=== PATIENT | female | born 1960 | race Caucasian/White ===

== ENCOUNTER 2017-06-04 15:40 | Inpatient (IN) | payer SELFPAY ==
[2017-06-04] MEDS ORDERED: MORPHINE SULFATE 2 MG/1 ML IVP ONE (16:01)
[2017-06-04] MEDS ORDERED: Sodium Chloride 0.9% 1,000 ML PRIMARY IV ONE (16:01)
[2017-06-04] MEDS ORDERED: NORMAL SALINE 10 ML SYRINGE FLUSH IVP PRN ×4 (16:01→21:58)
[2017-06-04] MEDS ORDERED: ONDANSETRON 4 MG/2 ML VIAL IVP ONE ×2 (16:01→18:19)
[2017-06-04] MEDS ORDERED: Famotidine Inj 20 MG in Normal Saline Flush 10 ML IVP ONE (16:01)
[2017-06-04 16:10] LABS: BASOPHILS # (AUTO) 0.05 10*3/UL; BASOPHILS % (AUTO) 0.4 % (0-1); EOSINOPHILS # (AUTO) 0.53 10*3/UL; EOSINOPHILS % (AUTO) 3.9 % (0-8); HEMATOCRIT 42.1 % (37.0-47.0); HEMOGLOBIN 14.7 g/dL (12.0-16.0); LYMPHOCYTES # (AUTO) 1.58 10*3/uL; MEAN CORPUSCULAR HEMOGLOBIN 32.6 PG (27-31); MEAN CORPUSCULAR HGB CONC 34.9 g/dL (33-37); MEAN CORPUSCULAR VOLUME 93.3 FL (81-99); MEAN PLATELET VOLUME 8.9 FL (7.4-12.2); MONOCYTES # (AUTO) 0.45 10*3/UL (0.3-0.8); MONOCYTES % (AUTO) 3.3 % (5-15); NEUTROPHILS # (AUTO) 10.93 10*3/UL; NEUTROPHILS % (AUTO) 80.6 % (50-80); PLATELET MORPHOLOGY COMMENT NORMAL MORPHOLOGY (NORM); RBC MORPHOLOGY COMMENT NORMAL MORPHOLOGY (NORM); RED BLOOD COUNT 4.51 10^6/uL (4.20-5.40); WBC MORPHOLOGY COMMENT NORMAL MORPHOLOGY (NORM)
[2017-06-04 16:14] LABS: BLOOD UREA NITROGEN 10 mg/dL (7-22); BUN/CREATININE RATIO 14.28 (6-20); CALCIUM 9.3 mg/dL (8.7-10.7); EST GLOMERULAR FILTRATION > 60 (>60 ml/min/1.73m(2)); LIPASE 25 IU/L (23-300); SERUM ALBUMIN 3.8 g/dL (3.5-4.8)
[2017-06-04 18:00] LABS: BILIRUBIN,URINE NEGATIVE (NEG); CLARITY,URINE CLEAR (CLEAR); COLOR,URINE YELLOW; GLUCOSE, URINE (UA) NEGATIVE (NEG); NITRATE,URINE POSITIVE (NEG); OCCULT BLOOD,URINE SMALL (NEG); PH,URINE 5.5 (5.0-8.5); PROTEIN,URINE NEGATIVE (NEG); UROBILINOGEN,URINE 0.2 EU/dL (0.2)
[2017-06-04 18:10] LABS: BACTERIA,URINE MANY; URINE SAMPLE TYPE CATH SPECIMEN
--- NOTE | 2017-06-04 18:17 | DI ---
CLINICAL HISTORY: Abdominal pain. COMPARISON: 07/09/2012. FINDINGS/TECHNIQUE: There is free fluid in the deep pelvis and right paracolic gutter. There are areas of free air in the subdiaphragmatic region. The appendix is normal. It is difficult to determine where the free air arises. The stomach and duodenal sweep are grossly normal. The liver, spleen, adrenals, gallbladder and kidneys are normal. Lung bases are clear. Skeletal structures are unremarkable. IMPRESSION; 1. Free subdiaphragmatic air and free fluid in the deep pelvis. This most likely arises from a perfo rated viscus. Correlate clinically. NOTIFICATION: The above findings were phoned to Fam Early in the ER Department on 06/04/2017 at 8:23 pm EST.
[2017-06-04] MEDS ORDERED: ERTAPENEM 1 GM VIAL ONE (18:30)
[2017-06-04] MEDS ORDERED: Sodium Chloride 0.9% 250 ML IV ONE (18:30)
[2017-06-04] MEDS: MORPHINE SULFATE 4 MG/1 ML IVP ONE ×2 (18:30→18:35)
[2017-06-04] MEDS ORDERED: Ertapenem Inj 1 GM in Sodium Chloride 0.9% 100 ML IV ONE (18:30)
--- NOTE | 2017-06-04 19:41 | PDOC ---
History and Physical - History of Present Illness Date and Time of Service: 06/04/2017 at 1935 Chief Complaint: Abdominal pain that started 10 AM History of Present Illness: This is 57-year-old female who appears level inserted age. The comes in with acute Onset of Abdominal Pain. She Had the Pain in the Midepigastric Region at 10 AM. The Pain Was so Severe Double Her over. She Is Feeling a Bit Better but It Is See Medication the ER. The Pain Is Now Localized More to the Right Side of the Abdomen. She Comes in with a 13,[address] Scan of the Abdomen Was Read As Having Free Air under the Diaphragm with Fluid in the Right Paracolic Gutter and in the Pelvis. The Appendix Appeared to Be Normal. Patient States That She's Been Having Abdominal Pain off and on for Years. Has Been Taking Zantac and Gas-X with No Relief. Patient Does Have Hepatitis C. Patient Currently Smokes. Past Medical History Medical History: Anxiety Surgical History: Tubal ligation, parotid gland tumor removal Tobacco Use: Current Every Day Smoker Substance Use Type: None Medication / Allergies Home Medications: Home Medications Medication Instructions Recorded Confirmed Type Esomeprazole Magnesium [Nexium 1 cap PO PRN cap 11/12/16 06/04/17 History 24hr] Inulin [Fiber Gummies] 2 gm PO PRN tab 11/12/16 06/04/17 History Lidocaine HCl 1 applic TOPICAL Q4H PRN #1 tube 11/12/16 06/04/17 Clinic Multivit with Calcium,Iron,Min 1 tab PO DAILY tab 11/12/16 06/04/17 History [Women's Daily Formula] Citalopram Hydrobromide 1 tab PO DAILY #30 tab 12/10/16 06/04/17 Clinic [Citalopram Hbr] Lorazepam 0.5 tab PO TID PRN #90 tab 12/10/16 06/04/17 Clinic Valacyclovir HCl [Valacyclovir] 1,000 mg PO QD #30 tab 12/10/16 06/04/17 Clinic Bisacodyl [Dulcolax] 5 mg PO PRN 06/04/17 06/04/17 History Ranitidine HCl [Zantac 75] 75 mg PO DAILY 06/04/17 06/04/17 History Simethicone [Gas-X Ultra Strength] 180 mg PO PRN 06/04/17 06/04/17 History Allergies/Adverse Reactions: Allergies Allergy/AdvReac Type Severity Reaction Status Date / Time codeine [Codeine] Allergy Severe EXCESSIVE Verified 06/04/17 15:56 VOMITING Review of Systems - Constitutional Constitutional: REPORTS: General Health Good - Integumentary Integumentary: REPORTS: Rash - Eye Exam Eye Exam: REPORTS: Negative System Review - Respiratory Respiratory: REPORTS: Negative System Review - Cardiovascular Cardiovascular: REPORTS: Negative System Review - Gastrointestinal Gastrointestinal / Abdominal: REPORTS: Negative System Review, Abdominal Pain - Genitourinary Genitourinary: REPORTS: Negative System Review - Musculoskeletal Musculoskeletal: REPORTS: Negative System Review - Neurological Neurologic: REPORTS: Negative System Review - Psychiatric Psychiatric: DENIES: Anhedonia, Anxiety, Depressed, Hopelessness, Hospitalization, Negative System Review, Other, Panic, Sadness, See HPI, Suicidality, Tearfullness Exam - Vitals Vital Signs: Vital Signs Temperature 97 F Temperature Source Temporal Artery Scan Pulse Rate [Pulse Oximeter] 78 Respiratory Rate 16 Blood Pressure [Left Arm] 135/102 Pulse Ox 95 Oxygen Delivery Method Room Air Height 5 ft 5 in Weight 56.699 kg - General General Appearance: POSITIVE: No Acute Distress, Cooperative - Head Head Exam: POSITIVE: Normal Inspection, Normocephalic - Eye Eye Exam: POSITIVE: Normal Appearance, PERRL, EOMI, No Scleral Icterus - ENT ENT Exam: POSITIVE: Normal Exam, Normal External Ear Exam, Normal Oropharynx, TM 's Normal Bilaterally, Mucous Membranes Moist - Neck Neck Exam: POSITIVE: Normal Inspection, Full ROM, No Tenderness, No Lymphadenopathy, No Thyromegaly, JVP is not Raised - Respiratory Respiratory Exam: POSITIVE: Clear to Auscultation - Bilaterally, Breathing Non Labored, Normal To Percussion, Normal to Percussion and Palpation - Cardiovascular Cardiovascular Exam: POSITIVE: RRR, No Murmur, No Clicks, No Gallops, No Rubs - GI/Abdominal GI/Abdominal Exam: POSITIVE: Normal Bowel Sounds, Non Distended, Soft, No Masses , No Hepatomegaly, No Splenomegaly, No Organomegaly Additional GI/Abdominal Exam Details: Patient has epigastric abdominal pain and right lower quadrant on pain the most tender areas the midepigastric region. Is no rebound or rigidity - Rectal Rectal Exam: POSITIVE: Deferred - External Exam: POSITIVE: Deferred Exam: POSITIVE: Deferred - Extremities Extremities Exam: POSITIVE: Normal Inspection, Full ROM, Normal Capillary Refill , No Clubbing Present, No Edema Present, No Cyanosis Present, Negative Samia's sign, Dosalis Pedis Pulses - Stong & Regular - Back Back Exam: POSITIVE: Normal Inspection, Full ROM, No CVA Tenderness - Neurological Neurological Exam: POSITIVE: Alert, Oriented x 3, Reflexes Normal, Normal Gait, CN II-XII Intact, No Facial Droop, Speech Intact / Clear, Moves All Extremities Equally, No Fasciculations, No Clonus - Psychiatric Psychiatric Exam: POSITIVE: Normal Affect, Normal Mood - Integumentary Integumentary Exam: POSITIVE: Normal Color, Warm, Dry, Intact Results - Labs CBC and BMP: 06/04/17 16:01 06/04/17 16:01 Labs - Last 24 Hours: Laboratory Results 06/04/17 Range/Units 16:01 WBC 13.57 H (4.8-10.8) 10^3/uL RBC 4.51 (4.20-5.40) 10^6/uL Hgb 14.7 (12.0-16.0) g/dL Hct 42.1 (37.0-47.0) % MCV 93.3 (81-99) FL MCH 32.6 H (27-31) PG MCHC 34.9 (33-37) g/dL RDW Std Deviation 46.1 (39-50) fL RDW Coeff of Anton 13.8 (11.5-14.5) % Plt Count 382 H (140-350) 10*3/uL MPV 8.9 (7.4-12.2) FL Immature Gran % (Auto) 0.2 (0-5) % Neut % (Auto) 80.6 H (50-80) % Lymph % (Auto) 11.6 (10-50) % [place] % (Auto) 3.3 L (5-15) % Eos % (Auto) 3.9 (0-8) % Baso % (Auto) 0.4 (0-1) % Immature Gran # (Auto) 0.03 10*3/UL Neut # (Auto) 10.93 10*3/UL Lymph # (Auto) 1.58 10*3/uL [place] # (Auto) 0.45 (0.3-0.8) 10*3/UL Eos # (Auto) 0.53 10*3/UL Baso # (Auto) 0.05 10*3/UL WBC Morphology Comment Normal morphology (NORM) Plt Morphology Comment Normal morphology (NORM) RBC Morph Comment Normal morphology (NORM) Sodium 139 (135-145) meq/L Potassium 3.7 L (3.8-5.2) meq/L Chloride 107 (98-112) meq/L Carbon Dioxide 22 L (23-33) meq/L Anion Gap 10 (5-20) BUN 10 (7-22) mg/dL Creatinine 0.7 (0.50-1.20) mg/dL Estimated GFR > 60 (>60 ml/min/1.73m(2)) BUN/Creatinine Ratio 14.28 (6-20) Glucose 120 H (78-110) mg/dL Calculated Osmolality 287.0 (267-292) mOsm/kg Calcium 9.3 (8.7-10.7) mg/dL Total Bilirubin 1.0 (0.3-1.2) mg/dL AST 43 H (8-39) IU/L ALT 21 (9-52) IU/L Alkaline Phosphatase 78 (38-126) IU/L Total Protein 6.7 (6.1-8.0) g/dL Albumin 3.8 (3.5-4.8) g/dL Globulin 2.9 (2.50-4.10) g/dL Albumin/Globulin Ratio 1.30 (1.3-2.0) mg/g Amylase 56 (30-110) U/L Lipase 25 (23-300) IU/L Ur Collection Type Cath specimen Urine Color Yellow Urine Clarity Clear (CLEAR) Urine pH 5.5 (5.0-8.5) Ur Specific [place] 1.015 (1.005-1.030) Urine Protein Negative (NEG) mg/dl Urine Glucose (UA) Negative (NEG) mg/dL Urine Ketones 15 (NEG) Urine Occult Blood Small H (NEG) Urine Nitrate Positive H (NEG) Urine Bilirubin Negative (NEG) Urine Urobilinogen 0.2 (0.2) EU/dL Ur Leukocyte Esterase Negative (NEG) Urine RBC None (NONE) /hpf Urine WBC 10-15 (NONE) Ur Squamous Epith Cells None (NONE) Ur Renal Epithelial Cell None (NONE) Urine Crystals None Urine Bacteria Many (NONE) Urine Casts None (NONE) Urine Mucus None (NONE) Urine Trichomonas None (NONE) Urine Yeast None (NONE) Ur Culture Indicated? Culture set Assessment and Plan - Patient Problems (1) Perforated abdominal viscus Current Visit: Yes Status: Acute - Assessment / Plan Additional Assessment/Plan Details: I told patient most likely she has a perforated viscus. I did not sure exactly what is perforated but most likely a ulcer. If it is an ulcer we will oversew and do a Vernon patch. Because of the timing from start of the down pain and amount contamination is seen on CT scan, I do not think is kennedy to do a vagotomy. Therefore will do the more minimal surgery. She will be placed on PPIs. She has received gram Invanz in the emergency department. Alternatively I discussed his benign antibiotics and PPIs she has declined that conservative treatment. Risks benefits surgery were explained she understands a signed informed consent .
[2017-06-04] MEDS ORDERED: Lactated Ringers 1,000 ML PRIMARY IV SCH ×2 (19:45→20:04)
[2017-06-04] MEDS ORDERED: MIDAZOLAM 5 MG/1 ML ONE (20:02)
[2017-06-04] MEDS ORDERED: fentaNYL Inj 250 MCG/5 ML VIAL ONE (20:02)
[2017-06-04] MEDS ORDERED: SUCCINYLCHOLINE CHLORIDE 20 MG/1 ML - 10 ML ONE (20:04)
[2017-06-04] MEDS ORDERED: ROCURONIUM 10 MG/1 ML - 5 ML VIAL IVP ONE (20:04)
[2017-06-04] MEDS ORDERED: Hetastarch 6% + NS 500 ML IV ONE (20:07)
[2017-06-04] MEDS ORDERED: IPRATROPIUM/ALBUTEROL SULFATE 3 ML NEB NEB ONE (20:08)
[2017-06-04] MEDS ORDERED: KETAMINE 100 MG/1 ML - 5 ML ONE (20:32)
[2017-06-04] MEDS ORDERED: ePHEDrine Inj 50 MG/ML AMP ONE (20:42)
[2017-06-04] MEDS ORDERED: GLYCOPYRROLATE 0.2 MG/1 ML VIAL ONE (21:07)
[2017-06-04] MEDS ORDERED: NEOSTIGMINE 1 MG/1 ML - 10 ML ONE (21:07)
[2017-06-04] MEDS ORDERED: DEXAMETHASONE PF 10 MG/1 ML VIAL ONE (21:08)
[2017-06-04] MEDS ORDERED: ONDANSETRON 4 MG/2 ML VIAL IVP PRN (21:22)
[2017-06-04] MEDS ORDERED: Acetaminophen 1000mg Inj 1,000 MG in Premix 1 BAG IV PRN ×2 (21:22→22:08)
[2017-06-04] MEDS ORDERED: MORPHINE SULFATE 2 MG/1 ML IVP PRN (21:22)
[2017-06-04] MEDS ORDERED: D5-1/2NS + 20mEq KCL 1,000 ML PRIMARY IV SCH (21:30)
[2017-06-04] MEDS ORDERED: Sodium Chloride 0.9% vial 10 ML ONE (21:32)
[2017-06-04] MEDS ORDERED: PANTOPRAZOLE IV 40 MG VIAL ONE (21:32)
--- NOTE | 2017-06-04 21:38 | GEN.OPNOTE ---
Operative Note Surgery Date: 06/04/17 Preoperative Diagnosis: Perforated viscus Postoperative Diagnosis: Perforated duodenal ulcer Procedure: Oversewing and Vernon patch of a duodenal ulcer Surgeon: Isra Forrester MD Anesthesia Provider: Leigha Bolden CRNA Anesthesia Type: General Estimated Blood Loss (mL): 2 Fluids: 1 L LR. 500 Hespan Pathology: None sent Indications: Patient comes with acute onset abdominal pain at 10 AM on 06/04/2017. CT scan shows free air Findings: Perforated duodenal ulcer Complications: None Operative Summary: Patient brought operating room placed supine position. Given general trach anesthesia. Prepped draped sterile fashion. Timeout performed per protocol. I made an upper midline incision. Hemostased and left cautery. Dissection of subcutaneous tissue electrocautery. I divided the fascia in the midline with electrocautery. Bluntly opened the peritoneum then opened with electrocautery. Harlan retractor was placed. Patient had a greenish fluid consistent with a perforated ulcer. Patient right of the pyloric channel had a perforated ulcer. I used 3-0 Vicryl to simply close the perforation. Then put a piece of omentum overlying the perforation and tied this in place perform a Vernon patch. I then used copious amounts of irrigation to irrigate out the abdominal cavity. Harlan retractor was removed. I closed with 0 Prolene contents running suture. Skin reapproximated using skin argelia. Patient tolerated surgery well the were no problems. All counts were correct. Patient Problems - Patient Problem List (1) Perforated abdominal viscus Current Visit: Yes Status: Acute
[2017-06-04] MEDS ORDERED: Acetaminophen 1000mg Inj 100 ML IV ONE (21:40)
[2017-06-04] MEDS: HYDROmorphone 2 MG/1 ML ONE ×2 (21:45→21:55)
[2017-06-04] MEDS ORDERED: fentaNYL Inj 100 MCG/2 ML VIAL IVP PRN (21:58)
[2017-06-04] MEDS ORDERED: HYDROmorphone 2 MG/1 ML IVP PRN (21:58)
[2017-06-04] MEDS: MORPHINE SULFATE 2 MG/1 ML IVP PRN (22:47)
[2017-06-04] MEDS ORDERED: Lactated Ringers 1,000 ML PRIMARY IV ONE (23:44)
[2017-06-05] MEDS: MORPHINE SULFATE 2 MG/1 ML IVP PRN ×8 (01:51→20:14)
[2017-06-05] MEDS: D5-1/2NS + 20mEq KCL 1,000 ML PRIMARY IV SCH ×3 (01:52→20:12)
--- NOTE | 2017-06-05 04:04 | PDOC ---
Abdomen/Flank HPI - General Chief Complaint: Abdomen Pain Stated Complaint: ABDOMEN PAIN Date Seen by Provider: 06/04/17 Time Seen by Provider: 15:50 Source: POSITIVE: Patient Exam Limitations: POSITIVE: No limitations Nurse's Notes Reviewed & Considered: Yes - History of Present Illness Initial Comments: The patient is a 57-year-old female. She presents to the emergency room complaining of an approximately six-hour history of abdominal pain. Her pain is poorly localized but is somewhat worse in the lower abdomen than the upper abdomen. She's had associated nausea but no vomiting. She's not had any history of abdominal surgery except for a bilateral tubal ligation. No vomiting , hematemesis, diarrhea, melena, hematochezia, dysuria or hematuria. No known fevers. 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) Severity: Moderate Quality: REPORTS: "Pain" Abdominal Pain Onset Location: REPORTS: Periumbilical, Generalized abdomen Abdominal Pain Radiation: REPORTS: No radiation Context: REPORTS: None Modifying Factors: improves with: Nothing Associated Symptoms: REPORTS: Nausea Similar Symptoms Previously: No Recent Care Received: REPORTS: Denies Any Prior Injuries Related to Current Complaint?: No - Patient Home Medications Home Medications: Home Medications Esomeprazole Magnesium [Nexium 24hr] 1 cap PO PRN cap 11/12/16 Inulin [Fiber Gummies] 2 gm PO PRN tab 11/12/16 Lidocaine HCl 1 applic TOPICAL Q4H PRN #1 tube 11/12/16 Multivit with Calcium,Iron,Min [Women's Daily Formula] 1 tab PO DAILY tab 11/12 Citalopram Hydrobromide [Citalopram Hbr] 1 tab PO DAILY #30 tab 12/10/16 Lorazepam 0.5 tab PO TID PRN #90 tab 12/10/16 Valacyclovir HCl [Valacyclovir] 1,000 mg PO QD #30 tab 12/10/16 Bisacodyl [Dulcolax] 5 mg PO PRN 06/04/17 Ranitidine HCl [Zantac 75] 75 mg PO DAILY 06/04/17 Simethicone [Gas-X Ultra Strength] 180 mg PO PRN 06/04/17 - Patient Allergies Allergies/Adverse Reactions: Allergies Allergy/AdvReac Type Severity Reaction Status Date / Time codeine [Codeine] Allergy Severe EXCESSIVE Verified 06/04/17 15:56 VOMITING Past Medical History - heen HEENT History: Denies History Cardiovascular History: Denies History Respiratory History: Denies History Gastrointestinal History: Pancreatitis Genitourinary History: Denies History Endocrine History: Denies History Musculoskeletal History: Denies History Prosthesis or Implant: No Neurological History: Denies History Blood Disorders: Other (please comment) Additional Blood Disorders History: HEPATITIS C Psychiatric History: Denies History Female Reproductive History: Hysterectomy Obstetrical History: Denies History Cancer History: Other (please comment) Cancer Treatment / Date(s) of Treatment: AGE 28 YR In Past Year Been Physically Harmed or Verbally Threatened: No History of MDRO: No Tobacco Use: Current Every Day Smoker Alcohol Use: Heavy Substance Use Type: None Previous Surgical History: Yes Anesthesia Reactions: No Significant Family History: Cancer Past Medical History Reviewed: Reviewed - No Changes ROS - Limitations ROS Limitations: No Limitations Constitution: REPORTS: Denies Symptoms Cardiovascular: REPORTS: Denies Cardiac Symptoms Respiratory: REPORTS: Denies Resp Symptoms Neurological: REPORTS: Denies Neuro Symptoms Gastrointestinal: REPORTS: Abdominal Pain, Nausea Endocrine: REPORTS: Denies Symptoms Musculoskeletal: REPORTS: Denies MS Symptoms Genitourinary: REPORTS: Denies Symptoms Eyes: REPORTS: Denies Symptoms ENT: REPORTS: Denies Symptoms Skin: REPORTS: Denies Skin Symptoms Lympathic: REPORTS: Denies Lympathic Symptoms Immunologic: POSITIVE: Denies Symptoms Psychiatric: POSITIVE: Denies Psych Symptoms Abdominal/Flank Pain PE - General Appearance General Appearance: POSITIVE: Alert, Cooperative, No Acute Distress, No Evidence of Trauma - HEENT HEENT: POSITIVE: Head Inspection Nml, Eyes Inspection Nml, Ears Inspection Nml, Nose Inspection Nml, Oral/Dental Inspect. Nml, Pharynx Inspect. Nml, PERRL, EOMI - Neck Neck: POSITIVE: Normal Inspection, No Apparent Injury - Respiratory Respiratory: POSITIVE: No Respiratory Distress, Breath Sounds Normal, Chest Non- Tender - Cardiovascular Cardiovascular: POSITIVE: Regular Rate and Rhythm, Heart Sounds Normal, Equal Pulses, Strong Pulses Peripheral Pulses: Radial (R): 2+, Radial (L): 2+ - Chest Chest: POSITIVE: Non Tender - Abdomen Abdomen: No Splenomegaly: (All Quadrants), No Hepatomegaly: (All Quadrants), No Guarding: (All Quadrants), No Rebound: (All Quadrants), No Palpable Pulse: (All Quadrants), No Palpabale Mass: (All Quadrants), No Distention: (All Quadrants), No Rigidity: (All Quadrants), Tenderness Noted: (RUQ), (LUQ), (RLQ), (LLQ), Hypoactive Bowel Sounds: (RUQ), (LUQ), (RLQ), (LLQ) Additional Abdominal Details: Abdominal examination shows bowel sounds to be depressed. Patient complains of tenderness wherever the abdomen is palpated, somewhat more so in the right and left lower abdominal quadrants. No masses, organomegaly or rebound. Some guarding. 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 Lab Results Reviewed: Yes Lab Results:: Laboratory Results 06/04/17 Range/Units 16:01 WBC 13.57 H (4.8-10.8) 10^3/uL RBC 4.51 (4.20-5.40) 10^6/uL Hgb 14.7 (12.0-16.0) g/dL Hct 42.1 (37.0-47.0) % MCV 93.3 (81-99) FL MCH 32.6 H (27-31) PG MCHC 34.9 (33-37) g/dL RDW Std Deviation 46.1 (39-50) fL RDW Coeff of Anton 13.8 (11.5-14.5) % Plt Count 382 H (140-350) 10*3/uL MPV 8.9 (7.4-12.2) FL Immature Gran % (Auto) 0.2 (0-5) % Neut % (Auto) 80.6 H (50-80) % Lymph % (Auto) 11.6 (10-50) % [place] % (Auto) 3.3 L (5-15) % Eos % (Auto) 3.9 (0-8) % Baso % (Auto) 0.4 (0-1) % Immature Gran # (Auto) 0.03 10*3/UL Neut # (Auto) 10.93 10*3/UL Lymph # (Auto) 1.58 10*3/uL [place] # (Auto) 0.45 (0.3-0.8) 10*3/UL Eos # (Auto) 0.53 10*3/UL Baso # (Auto) 0.05 10*3/UL WBC Morphology Comment Normal morphology (NORM) Plt Morphology Comment Normal morphology (NORM) RBC Morph Comment Normal morphology (NORM) Sodium 139 (135-145) meq/L Potassium 3.7 L (3.8-5.2) meq/L Chloride 107 (98-112) meq/L Carbon Dioxide 22 L (23-33) meq/L Anion Gap 10 (5-20) BUN 10 (7-22) mg/dL Creatinine 0.7 (0.50-1.20) mg/dL Estimated GFR > 60 (>60 ml/min/1.73m(2)) BUN/Creatinine Ratio 14.28 (6-20) Glucose 120 H (78-110) mg/dL Calculated Osmolality 287.0 (267-292) mOsm/kg Calcium 9.3 (8.7-10.7) mg/dL Total Bilirubin 1.0 (0.3-1.2) mg/dL AST 43 H (8-39) IU/L ALT 21 (9-52) IU/L Alkaline Phosphatase 78 (38-126) IU/L Total Protein 6.7 (6.1-8.0) g/dL Albumin 3.8 (3.5-4.8) g/dL Globulin 2.9 (2.50-4.10) g/dL Albumin/Globulin Ratio 1.30 (1.3-2.0) mg/g Amylase 56 (30-110) U/L Lipase 25 (23-300) IU/L Ur Collection Type Cath specimen Urine Color Yellow Urine Clarity Clear (CLEAR) Urine pH 5.5 (5.0-8.5) Ur Specific [place] 1.015 (1.005-1.030) Urine Protein Negative (NEG) mg/dl Urine Glucose (UA) Negative (NEG) mg/dL Urine Ketones 15 (NEG) Urine Occult Blood Small H (NEG) Urine Nitrate Positive H (NEG) Urine Bilirubin Negative (NEG) Urine Urobilinogen 0.2 (0.2) EU/dL Ur Leukocyte Esterase Negative (NEG) Urine RBC None (NONE) /hpf Urine WBC 10-15 (NONE) Ur Squamous Epith Cells None (NONE) Ur Renal Epithelial Cell None (NONE) Urine Crystals None Urine Bacteria Many (NONE) Urine Casts None (NONE) Urine Mucus None (NONE) Urine Trichomonas None (NONE) Urine Yeast None (NONE) Ur Culture Indicated? Culture set - Patient's Progress Pain Medication Addressed: POSITIVE: Yes (Morphine sulfate) Re-examine Time: 18:00 Re-Examine Comment: Diagnosis of pneumoperitoneum discussed with patient. Patient kept nothing by mouth. Hydrated with normal saline. 1 g of Invanz given. Medicated with morphine sulfate for her pain. Case discussed with Dr. Mondragon, surgeon, who will come to the emergency room to further evaluate and treat. Status: POSITIVE: Unchanged, Re-Examined - Consult Consult (If Yes, Name of Consulting MD & Time Called): Yes (Dr. Mondragon, surgeon, [id number]) Consulting MD will see pt:: POSITIVE: [facility] [facility] Admit Counseled: POSITIVE: Patient, RE: Lab Results, RE: Radiology Results, RE: DX, RE : Need for F/U Patient Care Time - Estimated PCT Patient Care Time (In Minutes): 60 Vital Signs - Recent Vital Signs Vital Signs: Vital Signs (Last 8 hours) Temp Pulse Pulse Resp BP BP Pulse Ox 06/05/17 03:12 96 06/05/17 00:15 98.0 F 77 16 104/73 96 06/04/17 23:11 97 06/04/17 22:10 98.1 F 92 18 126/68 93 06/04/17 22:09 98.1 F 92 18 126/68 93 06/04/17 21:55 92 16 113/72 06/04/17 21:50 99 16 114/70 06/04/17 21:45 99.1 F 95 16 117/70 06/04/17 21:40 100 16 127/80 06/04/17 21:35 89 16 114/69 06/04/17 21:30 86 16 109/63 06/04/17 21:25 96 16 122/81 06/04/17 21:20 98.4 F 102 H 16 128/80 - VS Reviewed Vital Signs Reviewed: Yes Discharge Clinical Impression: Abdominal pain, Pneumoperitoneum of unknown etiology, Urinary tract infection Discharge Disposition: Transferred to OR Condition: Fair Date Decision to Admit to Inpatient: 06/04/17 Time Decision to Admit to Inpatient: 18:10
[2017-06-05 05:24] LABS: BASOPHILS # (AUTO) 0.02 10*3/UL; BASOPHILS % (AUTO) 0.1 % (0-1); EOSINOPHILS # (AUTO) 0 10*3/UL; EOSINOPHILS % (AUTO) 0 % (0-8); HEMATOCRIT 36.7 % (37.0-47.0); HEMOGLOBIN 12.4 g/dL (12.0-16.0); LYMPHOCYTES # (AUTO) 0.58 10*3/uL; MEAN CORPUSCULAR HEMOGLOBIN 31.9 PG (27-31); MEAN CORPUSCULAR HGB CONC 33.8 g/dL (33-37); MEAN CORPUSCULAR VOLUME 94.3 FL (81-99); MEAN PLATELET VOLUME 9.1 FL (7.4-12.2); MONOCYTES # (AUTO) 0.61 10*3/UL (0.3-0.8); MONOCYTES % (AUTO) 3.4 % (5-15); NEUTROPHILS # (AUTO) 16.79 10*3/UL; NEUTROPHILS % (AUTO) 93.1 % (50-80); RED BLOOD COUNT 3.89 10^6/uL (4.20-5.40)
[2017-06-05 05:35] LABS: BLOOD UREA NITROGEN 10 mg/dL (7-22); BUN/CREATININE RATIO 16.66 (6-20); CALCIUM 8.7 mg/dL (8.7-10.7); EST GLOMERULAR FILTRATION > 60 (>60 ml/min/1.73m(2))
[2017-06-05 05:40] LABS: PLATELET MORPHOLOGY COMMENT NORMAL MORPHOLOGY (NORM); RBC MORPHOLOGY COMMENT NORMAL MORPHOLOGY (NORM); WBC MORPHOLOGY COMMENT NORMAL MORPHOLOGY (NORM)
[2017-06-05] MEDS ORDERED: Sodium Chloride 0.9% 1,000 ML ONE (06:06)
--- NOTE | 2017-06-05 08:41 | PDOC(PROG) ---
Subjective Post Op Day: postop day 1 Pain Management: Peripheral METAL TESTER Tirado Catheter: Yes Flatus: No Diet: NPO Date and Time of Service: 06/05/2017 at 840 Interval History: Patient states that she feels better than she did yesterday Objective : Data - Labs CBC and BMP: 06/05/17 04:30 06/05/17 04:30 Labs - Last 24 Hours: Laboratory Results 06/05/17 Range/Units 04:30 WBC 18.04 H (4.8-10.8) 10^3/uL RBC 3.89 L (4.20-5.40) 10^6/uL Hgb 12.4 (12.0-16.0) g/dL Hct 36.7 L (37.0-47.0) % MCV 94.3 (81-99) FL MCH 31.9 H (27-31) PG MCHC 33.8 (33-37) g/dL RDW Std Deviation 46.4 (39-50) fL RDW Coeff of Anton 13.8 (11.5-14.5) % Plt Count 299 (140-350) 10*3/uL MPV 9.1 (7.4-12.2) FL Immature Gran % (Auto) 0.2 (0-5) % Neut % (Auto) 93.1 H (50-80) % Lymph % (Auto) 3.2 L (10-50) % [place] % (Auto) 3.4 L (5-15) % Eos % (Auto) 0 (0-8) % Baso % (Auto) 0.1 (0-1) % Immature Gran # (Auto) 0.04 10*3/UL Neut # (Auto) 16.79 10*3/UL Lymph # (Auto) 0.58 10*3/uL [place] # (Auto) 0.61 (0.3-0.8) 10*3/UL Eos # (Auto) 0 10*3/UL Baso # (Auto) 0.02 10*3/UL WBC Morphology Comment Normal morphology (NORM) Plt Morphology Comment Normal morphology (NORM) RBC Morph Comment Normal morphology (NORM) Sodium 135 (135-145) meq/L Potassium 4.4 (3.8-5.2) meq/L Chloride 108 (98-112) meq/L Carbon Dioxide 21 L (23-33) meq/L Anion Gap 6 (5-20) BUN 10 (7-22) mg/dL Creatinine 0.6 (0.50-1.20) mg/dL Estimated GFR > 60 (>60 ml/min/1.73m(2)) BUN/Creatinine Ratio 16.66 (6-20) Glucose 153 H (78-110) mg/dL Calculated Osmolality 281.0 (267-292) mOsm/kg Calcium 8.7 (8.7-10.7) mg/dL - Vital Signs Vital Signs and I&O: Vital Signs - Last Taken Temperature 98.5 F 06/05/17 07:18 Pulse Rate 66 06/05/17 07:18 Respiratory Rate 17 06/05/17 07:18 Blood Pressure 101/62 06/05/17 07:18 Pulse Ox 93 06/05/17 07:18 Intake and Output (24hr x 4 totals) 06/03/17 06/04/17 06/05/17 06/06/17 05:59 05:59 05:59 05:59 Intake Total 300 Output Total 590 Balance -290 Objective : Exam - General General Appearance: No Acute Distress, Cooperative - Head Head Exam: Normal Inspection, Normocephalic, Atraumatic - Eye Eye Exam: Normal Appearance, PERRL, EOMI - Respiratory Respiratory Exam: Clear to Auscultation - Bilaterally - Cardiovascular Cardiovascular Exam: RRR - GI/Abdominal GI/Abdominal Exam: Non Tender, Non Distended, Soft Assessment and Plan - Patient Problems (1) Perforated abdominal viscus Current Visit: Yes Status: Acute (2) Perforated duodenal ulcer Current Visit: Yes Status: Acute - Assessment / Plan Additional Assessment/Plan Details: We'll continue the NG tube for complete 24 hours. Work on getting the Tirado out per nurse driven protocols. Patient's white count is elevated we'll give a second dose of Invanz.
[2017-06-05] MEDS: Pantoprazole Inj 40 MG in Normal Saline Flush 10 ML IVP SCH (08:43)
[2017-06-05] MEDS ORDERED: Pantoprazole Inj 40 MG in Normal Saline Flush 10 ML IVP SCH (09:00)
--- NOTE | 2017-06-05 13:19 | CRNA.PROGR ---
Anesthesia Note Anesthesia Progress Note: Awake in bed. Reports she has been ambulating. Tirado is out. NG still in. Still getting iv pain meds. Some nausea lalst night, none today. Says she's getting incentive spirometer up to 1000 ml. Encouraged her to use spirometer. No apparent anesthetic difficulties at this time.
[2017-06-05] MEDS: NICOTINE 21 MG /DAY PATCH TRANSDERM SCH (14:10)
[2017-06-05] MEDS: ONDANSETRON 4 MG/2 ML VIAL IVP PRN (18:59)
[2017-06-05] MEDS ORDERED: diphenhydrAMINE 50 MG/1 ML VIAL IVP PRN (19:29)
[2017-06-05] MEDS ORDERED: Sodium Chloride 0.9% 50 ML IV ONE (20:06)
[2017-06-05] MEDS: Ertapenem Inj 1 GM in Sodium Chloride 0.9% 100 ML IV SCH (20:12)
[2017-06-06] MEDS: MORPHINE SULFATE 2 MG/1 ML IVP PRN ×7 (01:02→20:55)
[2017-06-06 05:15] LABS: BASOPHILS # (AUTO) 0.08 10*3/UL; BASOPHILS % (AUTO) 0.6 % (0-1); EOSINOPHILS # (AUTO) 0.32 10*3/UL; EOSINOPHILS % (AUTO) 2.4 % (0-8); HEMATOCRIT 35.5 % (37.0-47.0); LYMPHOCYTES # (AUTO) 1.88 10*3/uL; MEAN CORPUSCULAR HEMOGLOBIN 31.9 PG (27-31); MEAN CORPUSCULAR HGB CONC 33.8 g/dL (33-37); MEAN CORPUSCULAR VOLUME 94.4 FL (81-99); MEAN PLATELET VOLUME 9.1 FL (7.4-12.2); MONOCYTES # (AUTO) 1.09 10*3/UL (0.3-0.8); MONOCYTES % (AUTO) 8.3 % (5-15); NEUTROPHILS # (AUTO) 9.71 10*3/UL; NEUTROPHILS % (AUTO) 74.2 % (50-80); RED BLOOD COUNT 3.76 10^6/uL (4.20-5.40)
[2017-06-06 05:16] LABS: PLATELET MORPHOLOGY COMMENT NORMAL MORPHOLOGY (NORM); RBC MORPHOLOGY COMMENT NORMAL MORPHOLOGY (NORM); WBC MORPHOLOGY COMMENT NORMAL MORPHOLOGY (NORM)
[2017-06-06 05:24] LABS: BLOOD UREA NITROGEN 8 mg/dL (7-22); BUN/CREATININE RATIO 13.33 (6-20); CALCIUM 8.8 mg/dL (8.7-10.7); EST GLOMERULAR FILTRATION > 60 (>60 ml/min/1.73m(2))
[2017-06-06] MEDS: ONDANSETRON 4 MG/2 ML VIAL IVP PRN (06:03)
[2017-06-06] MEDS: NICOTINE 21 MG /DAY PATCH TRANSDERM SCH (08:56)
[2017-06-06] MEDS: Pantoprazole Inj 40 MG in Normal Saline Flush 10 ML IVP SCH (08:56)
[2017-06-06] MEDS: D5-1/2NS + 20mEq KCL 1,000 ML PRIMARY IV SCH ×2 (08:57→19:51)
[2017-06-06] MEDS: REMOVE NICOTINE PATCH TRANSDERM SCH (09:25)
--- NOTE | 2017-06-06 12:55 | PDOC(PROG) ---
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 So has not passing flatus. Objective : Data - Labs CBC and BMP: 06/06/17 04:30 06/06/17 04:30 Labs - Last 24 Hours: Laboratory Results 06/06/17 Range/Units 04:30 WBC 13.11 H (4.8-10.8) 10^3/uL RBC 3.76 L (4.20-5.40) 10^6/uL Hgb 12.0 (12.0-16.0) g/dL Hct 35.5 L (37.0-47.0) % MCV 94.4 (81-99) FL MCH 31.9 H (27-31) PG MCHC 33.8 (33-37) g/dL RDW Std Deviation 47.2 (39-50) fL RDW Coeff of Anton 14.1 (11.5-14.5) % Plt Count 295 (140-350) 10*3/uL MPV 9.1 (7.4-12.2) FL Immature Gran % (Auto) 0.2 (0-5) % Neut % (Auto) 74.2 (50-80) % Lymph % (Auto) 14.3 (10-50) % Will % (Auto) 8.3 (5-15) % Eos % (Auto) 2.4 (0-8) % Baso % (Auto) 0.6 (0-1) % Immature Gran # (Auto) 0.03 10*3/UL Neut # (Auto) 9.71 10*3/UL Lymph # (Auto) 1.88 10*3/uL Will # (Auto) 1.09 H (0.3-0.8) 10*3/UL Eos # (Auto) 0.32 10*3/UL Baso # (Auto) 0.08 10*3/UL WBC Morphology Comment Normal morphology (NORM) Plt Morphology Comment Normal morphology (NORM) RBC Morph Comment Normal morphology (NORM) Sodium 137 (135-145) meq/L Potassium 3.8 (3.8-5.2) meq/L Chloride 108 (98-112) meq/L Carbon Dioxide 24 (23-33) meq/L Anion Gap 5 (5-20) BUN 8 (7-22) mg/dL Creatinine 0.6 (0.50-1.20) mg/dL Estimated GFR > 60 (>60 ml/min/1.73m(2)) BUN/Creatinine Ratio 13.33 (6-20) Glucose 111 H (78-110) mg/dL Calculated Osmolality 282.0 (267-292) mOsm/kg Calcium 8.8 (8.7-10.7) mg/dL - Vital Signs Vital Signs and I&O: Vital Signs - Last Taken Temperature 98.2 F 06/06/17 11:23 Pulse Rate 80 06/06/17 11:23 Respiratory Rate 18 06/06/17 11:23 Blood Pressure 106/74 06/06/17 11:23 Pulse Ox 91 06/06/17 11:23 Intake and Output (24hr x 4 totals) 06/04/17 06/05/17 06/06/17 06/07/17 05:59 05:59 05:59 05:59 Intake Total 300 2564 Output Total 590 3200 850 Balance -290 -194 -850 Objective : Exam - General General Appearance: No Acute Distress, Cooperative - Head Head Exam: Normal Inspection, Normocephalic, Atraumatic - Eye Eye Exam: Normal Appearance, PERRL, EOMI - Respiratory Respiratory Exam: Clear to Auscultation - Bilaterally - Cardiovascular Cardiovascular Exam: RRR - GI/Abdominal GI/Abdominal Exam: Non Tender, Non Distended, Soft Assessment and Plan - Patient Problems (1) Perforated abdominal viscus Current Visit: Yes Status: Acute (2) Perforated duodenal ulcer Current Visit: Yes Status: Acute - Assessment / Plan Additional Assessment/Plan Details: We'll remove the NG tube today started on a clear liquid diet.
[2017-06-06 15:25] LABS: BILIRUBIN,URINE NEGATIVE (NEG); CLARITY,URINE CLEAR (CLEAR); COLOR,URINE YELLOW; GLUCOSE, URINE (UA) NEGATIVE (NEG); NITRATE,URINE NEGATIVE (NEG); OCCULT BLOOD,URINE SMALL (NEG); PROTEIN,URINE NEGATIVE (NEG); UROBILINOGEN,URINE 0.2 EU/dL (0.2)
[2017-06-06 15:31] LABS: BACTERIA,URINE RARE; URINE SAMPLE TYPE CATH SPECIMEN; WBC,URINE 0-1
[2017-06-06] MEDS: Ertapenem Inj 1 GM in Sodium Chloride 0.9% 100 ML IV SCH (20:12)
[2017-06-07] MEDS: D5-1/2NS + 20mEq KCL 1,000 ML PRIMARY IV SCH ×2 (04:45→09:05)
[2017-06-07] MEDS: NICOTINE 21 MG /DAY PATCH TRANSDERM SCH (08:59)
[2017-06-07] MEDS: Pantoprazole Inj 40 MG in Normal Saline Flush 10 ML IVP SCH (09:00)
[2017-06-07] MEDS: REMOVE NICOTINE PATCH TRANSDERM SCH (09:05)
--- NOTE | 2017-06-07 09:28 | PDOC(PROG) ---
Subjective Post Op Day: postop day 3 Pain Management: PO Tirado Catheter: No Date and Time of Service: the 2016 8:30 Interval History: Patient states that she is doing better having no abdominal pain. Tolerating liquid diet Objective : Data - Labs CBC and BMP: 06/06/17 04:30 06/06/17 04:30 Labs - Last 24 Hours: Laboratory Results 06/06/17 Range/Units 15:15 Ur Collection Type Cath specimen Urine Color Yellow Urine Clarity Clear (CLEAR) Urine pH 7.0 (5.0-8.5) Ur Specific [place] 1.010 (1.005-1.030) Urine Protein Negative (NEG) mg/dl Urine Glucose (UA) Negative (NEG) mg/dL Urine Ketones Negative (NEG) Urine Occult Blood Small H (NEG) Urine Nitrate Negative (NEG) Urine Bilirubin Negative (NEG) Urine Urobilinogen 0.2 (0.2) EU/dL Ur Leukocyte Esterase Negative (NEG) Urine RBC 2-5 (NONE) /hpf Urine WBC 0-1 (NONE) Ur Squamous Epith Cells None (NONE) Ur Renal Epithelial Cell None (NONE) Urine Crystals None Urine Bacteria Rare (NONE) Urine Casts None (NONE) Urine Mucus None (NONE) Urine Trichomonas None (NONE) Urine Yeast None (NONE) - Vital Signs Vital Signs and I&O: Vital Signs - Last Taken Temperature 98.2 F 06/07/17 06:59 Pulse Rate 64 06/07/17 06:59 Respiratory Rate 20 06/07/17 07:00 Blood Pressure 97/65 06/07/17 06:59 Pulse Ox 93 06/07/17 06:59 Intake and Output (24hr x 4 totals) 06/05/17 06/06/17 06/07/17 06/08/17 05:59 05:59 05:59 05:59 Intake Total 300 2564 3184 240 Output Total 590 3200 4850 Balance -290 -440 -1137 240 Objective : Exam - General General Appearance: No Acute Distress, Cooperative - Neck Neck Exam: Full ROM - Respiratory Respiratory Exam: Breathing Non Labored - Cardiovascular Cardiovascular Exam: No Murmur - GI/Abdominal GI/Abdominal Exam: Non Tender, Non Distended, Soft Assessment and Plan - Patient Problems (1) Perforated abdominal viscus Current Visit: Yes Status: Acute (2) Perforated duodenal ulcer Current Visit: Yes Status: Acute - Assessment / Plan Additional Assessment/Plan Details: Overall patient is doing better will switch her to oral pain medication and oral Protonix. Increase her diet to full liquids. Dr. Schultz recovering from and 06/13/2017. Also patient be ready for discharge in a.m.
[2017-06-07] MEDS: VALACYCLOVIR 1000 MG PO SCH (10:07)
[2017-06-07] MEDS ORDERED: LORazepam 1 MG TABLET PO PRN (10:15)
[2017-06-07] MEDS: HYDROcodone-APAP 5 MG -325 MG TABLET PO PRN ×3 (10:38→21:47)
[2017-06-07] MEDS: ONDANSETRON 4 MG/2 ML VIAL IVP PRN (16:06)
[2017-06-07] MEDS: PANTOPRAZOLE 40 MG TABLET PO SCH (21:43)
[2017-06-08 04:40] LABS: HEMATOCRIT 37.7 % (37.0-47.0); HEMOGLOBIN 12.9 g/dL (12.0-16.0); MEAN CORPUSCULAR HEMOGLOBIN 32.2 PG (27-31); MEAN CORPUSCULAR HGB CONC 34.2 g/dL (33-37); MEAN PLATELET VOLUME 8.8 FL (7.4-12.2); RED BLOOD COUNT 4.01 10^6/uL (4.20-5.40)
[2017-06-08 04:57] LABS: BLOOD UREA NITROGEN 5 mg/dL (7-22); BUN/CREATININE RATIO 7.14 (6-20); CALCIUM 9.5 mg/dL (8.7-10.7); EST GLOMERULAR FILTRATION > 60 (>60 ml/min/1.73m(2))
[2017-06-08 08:01] VITALS: RESP 16
[2017-06-08] MEDS ORDERED: NORMAL SALINE 10 ML SYRINGE FLUSH IVP PRN (08:03)
[2017-06-08] MEDS: NICOTINE 21 MG /DAY PATCH TRANSDERM SCH (08:10)
[2017-06-08] MEDS: VALACYCLOVIR 1000 MG PO SCH (08:11)
[2017-06-08] MEDS: PANTOPRAZOLE 40 MG TABLET PO SCH (08:11)
[2017-06-08] MEDS: REMOVE NICOTINE PATCH TRANSDERM SCH (08:13)
[2017-06-08] MEDS ORDERED: CITALOPRAM 20 MG TABLET PO SCH (09:00)
[2017-06-08] MEDS: HYDROcodone-APAP 5 MG -325 MG TABLET PO PRN (09:49)
[2017-06-08 12:22] VITALS: TEMP 98.1
--- NOTE | 2017-06-08 12:22 | DCSUMMARY ---
Discharge Summary Admit Date: 06/04/17 Discharge Date: 06/08/17 Admitting Diagnosis: perforated viscus Discharge Diagnosis: Perforated duodenal ulcer Primary Surgery and Date: Grahm patch closure of perforated duodenal ulcer. Hospital Course: Patient underwent repair of a perforated duodenal ulcer. Her postoperative course has been unremarkable. She is tolerating a regular diet. She is comfortable. She is having no dyspepsia. She is passing gas. She has not had a bowel movement. She is ready to be discharged home for outpatient follow-up. Exam - Vitals Vital Signs: Vital Signs Temperature 98.2 F Temperature Source Temporal Artery Scan Pulse Rate [Pulse Oximeter] 80 Pulse Rate 92 Respiratory Rate 16 Blood Pressure [Left Arm] 124/83 Blood Pressure 113/72 Pulse Ox 95 Oxygen Flow Rate 1 Oxygen Flow Rate 4 Oxygen Delivery Method Room Air Height 5 ft 5 in Weight 58.876 kg - General General Appearance: POSITIVE: No Acute Distress, Cooperative - Respiratory Respiratory Exam: POSITIVE: Clear to Auscultation - Bilaterally, Breathing Non Labored - Cardiovascular Cardiovascular Exam: POSITIVE: RRR, No Murmur - GI/Abdominal GI/Abdominal Exam: POSITIVE: Normal Bowel Sounds, Non Distended, Soft Additional GI/Abdominal Exam Details: The incision looks good. [place] are intact. - Neurological Neurological Exam: POSITIVE: Alert, Oriented x 3 - Psychiatric Psychiatric Exam: POSITIVE: Normal Affect, Normal Mood Data Perinent Studies: CT scan showing perforated viscus. Procedures: Surgical closure perforated duodenal ulcer. Patient Problems - Patient Problem List (1) Perforated duodenal ulcer Current Visit: Yes Status: Acute Diagnosis Date: 06/04/17 Comment: Status post surgical repair. Doing well. Follow-up with Dr. Forrester on Tuesday the at 9 AM.
== END 2017-06-08 12:52 | disposition home or self-care (01) | DRG 328 ==
LOC: ER 15:40 → SDSC 19:47 → MED/SURG 21:28
PROVIDERS: ADMIT Surgery; ATTEND Surgery
PROC: 0DU907Z Supplement Duodenum with Autologous Tissue Substitute, Open Approach (ICD-10-PCS; 2017-06-04)
PROC: 0DQ90ZZ Repair Duodenum, Open Approach (ICD-10-PCS; principal; 2017-06-04 20:05)
DX: K26.5 Chronic or unspecified duodenal ulcer with perforation (principal)
CPT/HCPCS: 36415; 74177; 80048; 80053; 81001; 81003; 82150; 83690; 85025; 85027; 87077; 87088; 87186; 94150; 94640; 94761; 96361; 96365; 96375; 96376; 99284; A4216; J0131; J0330; J1100; J1170; J1200; J1335; J2250; J2270; J2405; J2710; J3010; J3490; J7030; J7050; J7120; J7620